=== PATIENT | male | born 1990 ===

== ENCOUNTER 2017-02-24 19:56 | Emergency (ER) | payer MEDICAID, MEDICARE ==
[2017-02-24 19:58] VITALS: BMI 23.7
[2017-02-24 20:00] VITALS: BP 131/84; PULSE 106; RESP 16; TEMP 99.7; O2SAT 99
--- NOTE | 2017-02-24 20:51 | ED PDOC ---
HPI: Psych/Substance Abuse Time Seen by Provider: 02/24/17 19:59 Chief Complaint (Nursing): Substance Abuse Chief Complaint (Provider): substance abuse History Per: Patient, EMS Modifying Factor(s): Narcotics Additional Complaint(s): The patient is a 26yo male, PMHx of heroin abuse, is brought to the ED by EMS for evaluation of possible overdose. Patient was given Narcan intranasally on field. Pt currently in the ED alert and orient with steady gait. Pt reports he injected "2 bags" of heroin and states his girlfriend panicked and thought he may have overdosed. Pt currently declines any medical treatments. He also denies any medical or psychological complaints; denies suicidal ideation, homicidal ideation, auditory or visual hallucination. Past Medical History Reviewed: Historical Data, Nursing Documentation, Vital Signs Vital Signs: Last Vital Signs Temp 99.7 F H 02/24/17 19:58 Pulse 106 H 02/24/17 19:58 Resp 16 02/24/17 19:58 BP 131/84 02/24/17 19:58 Pulse Ox 99 02/24/17 19:58 - Medical History PMH: Anxiety, Asthma, Back Problems, Depression Denies: Diabetes, Hepatitis, HIV, HTN, Chronic Kidney Disease, Seizures, Sexually Transmitted Disease - Family History Family History: States: Unknown Family Hx - Social History Drugs: Opiates - Immunization History Hx Influenza Vaccination: No - Home Medications Home Medications: Ambulatory Orders Medication Instructions Recorded Gabapentin [Neurontin] 300 mg PO TID #90 cap 01/07/17 traZODone [Desyrel] 50 mg PO HS PRN #30 tab 01/07/17 - Allergies Allergies/Adverse Reactions: Allergies Allergy/AdvReac Type Severity Reaction Status Date / Time SEASONAL Allergy RASH Uncoded 02/24/17 19:58 Review of Systems ROS Statement: Except As Marked, All Systems Reviewed And Found Negative Psych: Negative for: Suicidal ideation, Other (auditory or visual hallucinations ) Physical Exam - Reviewed Nursing Documentation Reviewed: Yes Vital Signs Reviewed: Yes - Physical Exam Appears: Positive for: Well, Non-toxic, No Acute Distress Head Exam: Positive for: ATRAUMATIC, NORMAL INSPECTION, NORMOCEPHALIC Skin: Positive for: Normal Color, Warm, DRY Eye Exam: Positive for: Normal appearance Neck: Positive for: Normal Cardiovascular/Chest: Positive for: Regular Rate, Rhythm Respiratory: Positive for: Normal Breath Sounds. Negative for: Respiratory Distress Neurologic/Psych: Positive for: Alert, Oriented, Gait (steady) - ECG O2 Sat by Pulse Oximetry: 99 (RA) Pulse Ox Interpretation: Normal Medical Decision Making Medical Decision Making: Time: 2009 Impression: Opioid abuse Plan: -- Based on clinical presentation, pt stable for d/c home. Scribe Attestation: Documented by Chelsea Johnson acting as a scribe for Dong Farrell MD. Provider Attestation: All medical record entries made by the Scribe were at my direction and personally dictated by me. I have reviewed the chart and agree that the record accurately reflects my personal performance of the history, physical exam, medical decision making, and the department course for this patient. I have also personally directed, reviewed, and agree with the discharge instructions and disposition. Disposition - Clinical Impression Clinical Impression: Substance abuse - Disposition Disposition: Routine/Home Disposition Time: 20:10 Condition: STABLE Instructions: Narcotic Abuse (ED)
[2017-02-25] MEDS ORDERED: Naloxone 0.4 mg/ml Inj (Adult) ONE ×3 (06:20→06:24)
== END 2017-02-24 20:20 | disposition home or self-care (01) ==
LOC: H.ER 19:56
DX: F11.10 Opioid abuse, uncomplicated (principal); F32.9 Major depressive disorder, single episode, unspecified; F41.9 Anxiety disorder, unspecified

== ENCOUNTER 2017-02-25 00:09 | Observation (INO) | payer MEDICARE ==
[2017-02-25 00:12] VITALS: BMI 24.4
[2017-02-25 00:15] VITALS: BP 125/86; RESP 16; TEMP 98.2; O2SAT 95
--- NOTE | 2017-02-25 00:25 | ED PDOC ---
HPI: Psych/Substance Abuse Time Seen by Provider: 02/25/17 00:11 Chief Complaint (Nursing): Substance Abuse Chief Complaint (Provider): Substance Abuse ED Caveat: Intoxicated History Per: Patient History/Exam Limitations: intoxication Current Symptoms Are (Timing): Still Present Suicide/Self Injury Attempted (Context): None Modifying Factor(s): Other (Heroin) Additional Complaint(s): 26 year old male presents to ED for an evaluation of possible heroin overdose and has a history of heroin abuse. Patient was brought in x4 hours by EMS for a possible overdose and was given Narcan intranasally on field at that time. Patient denied medical treatment as well as any medical complaints and was discharged home. Patient returns to ED after being found unconscious by [facility] and EMS after using heroin again. EMS denies administering Narcan on field this time. Patient is visibly obtunded from heroin use. PCP: [facility] Past Medical History Reviewed: Historical Data, Nursing Documentation, Vital Signs Vital Signs: Last Vital Signs Temp 98.2 F 02/25/17 00:12 Pulse 88 02/25/17 00:12 Resp 16 02/25/17 00:12 BP 125/86 02/25/17 00:12 Pulse Ox 95 02/25/17 00:12 - Medical History PMH: Anxiety, Asthma, Back Problems, Depression Denies: Diabetes, Hepatitis, HIV, HTN, Chronic Kidney Disease, Seizures, Sexually Transmitted Disease - Family History Family History: States: Unknown Family Hx - Living Arrangements Living Arrangements: Other (With girlfriend) - Social History Drugs: Opiates (Heroin) - Immunization History Hx Influenza Vaccination: No - Home Medications Home Medications: Ambulatory Orders Medication Instructions Recorded Gabapentin [Neurontin] 300 mg PO TID #90 cap 01/07/17 traZODone [Desyrel] 50 mg PO HS PRN #30 tab 01/07/17 - Allergies Allergies/Adverse Reactions: Allergies Allergy/AdvReac Type Severity Reaction Status Date / Time SEASONAL Allergy RASH Uncoded 02/25/17 00:12 Review of Systems Review Of Systems: ROS cannot be obtained secondary to pt's inabilty to answer questions. (Due to patient's obtunded state) Physical Exam - Reviewed Nursing Documentation Reviewed: Yes Vital Signs Reviewed: Yes - Physical Exam Head Exam: Positive for: ATRAUMATIC Skin: Positive for: Normal Color, Warm, Dry Eye Exam: Negative for: Normal appearance (Pinpoint pupils) Cardiovascular/Chest: Positive for: Regular Rate, Rhythm. Negative for: Murmur Respiratory: Positive for: Normal Breath Sounds. Negative for: Respiratory Distress Gastrointestinal/Abdominal: Positive for: Normal Exam, Soft. Negative for: Tenderness Back: Positive for: Normal Inspection Extremity: Positive for: Normal ROM. Negative for: Deformity Neurologic/Psych: Positive for: Alert. Negative for: Oriented (Obtunded state) , Motor/Sensory Deficits - Laboratory Results Result Diagrams: 02/25/17 00:30 02/25/17 00:30 - ECG ECG Rhythm: Positive for: Sinus Rhythm Rate: 83 O2 Sat by Pulse Oximetry: 95 (RA) Pulse Ox Interpretation: Normal - Critical Care Total Time (In Min): 30 Medical Decision Making Medical Decision Makin Initial impression: heroin overdose Initial plan: * EKG * EtOH serum * Labs * UDrug screen * ED OBS ADMISSION All further documentation will take place in ED OBS section of chart. Scribe Attestation: Documented by Dana York acting as a scribe for Dong Farrell MD. Scribe Attestation: All medical record entries made by the Scribe were at my direction and personally dictated by me. I have reviewed the chart and agree that the record accurately reflects my personal performance of the history, physical exam, medical decision making, and the department course for this patient. I have also personally directed, reviewed, and agree with the discharge instructions and disposition. ED OBSERVATION Date of observation admission: 02/25/17 Time of observation admission: 00:23 - Observation admission statement Patient is being placed in observation because:: Intoxicated state - Goals of Observation Goals of observation are:: Clinical sobriety - Progress Note Progress Note: 02/25/17 01:49 Patient is resting comfortably. 02/25/17 02:30 Patient is resting comfortably. 02/25/17 03:23 Patient is resting comfortably. 02/25/17 04:34 Patient is resting comfortably. Vitals stable. 02/25/17 06:00 Patient is awake, alert, oriented x3 and walking with steady gait. Upon re-evaluation, patient is feeling much better and is medically stable and ready for discharge. Counseling has been provided and patient is in agreement. Return if symptoms persist or acutely worsen. Disposition - Clinical Impression Clinical Impression: Opiate abuse, continuous - Disposition Disposition Time: 00:23 Condition: STABLE - Pt Status Changed To: Hospital Disposition Of: Observation
[2017-02-25 01:02] LABS: ALB/GLOB RATIO 1.1 (1.0-2.1); ALBUMIN 4.8 g/dL (3.5-5.0); ALT/SGPT 93 U/L (21-72); AST/SGOT 69 U/L (17-59); BLOOD UREA NITROGEN 12 mg/dl (9-20); CALCIUM 9.5 mg/dL (8.4-10.2); GFR AFRICAN-AMERICAN > 60; GFR NON-AFRICAN AMERICAN > 60
[2017-02-25 01:05] LABS: BASO % 0.3 % (0.0-2.0); EOS # 0.1 K/uL (0.0-0.7); EOS % 1.2 % (0.0-4.0); HEMOGLOBIN 13.2 g/dL (12.0-18.0); LYMPH # 0.8 K/uL (1.0-4.3); LYMPH % 10.5 % (20.0-40.0); MEAN CELL VOLUME 84.5 fl (80.0-94.0); MEAN CORPUSCULAR HEMOGLOBIN 29.6 pg (27.0-31.0); MEAN PLATELET VOLUME 6.9 fl (7.2-11.7); MONO # 0.8 K/uL (0.0-0.8); MONO % 9.9 % (0.0-10.0); NEUT # 6.3 K/uL (1.8-7.0); NEUT % 78.1 % (50.0-75.0); RBC 4.47 Mil/uL (4.40-5.90); RED CELL DISTRIBUTION WIDTH 14.8 % (11.5-14.5)
[2017-02-25 01:11] LABS: BARBITURATES, UR NEGATIVE (NEGATIVE); BENZODIAZEPINES, UR POSITIVE (NEGATIVE); OPIATES, UR POSITIVE (NEGATIVE); PHENCYCLIDINE, UR NEGATIVE (NEGATIVE)
[2017-02-25 04:33] VITALS: PULSE 83
[2017-02-25] MEDS ORDERED: Naloxone HCl 2mg/2ml syr IVP ONE ×2 (06:19→06:57)
--- NOTE | 2017-02-25 18:24 | CARD ---
APPROVED REPORT EKG Measurement Heart [id number] <Conclusion> Normal sinus rhythm Normal ECG
== END 2017-02-25 06:12 | disposition home or self-care (01) ==
LOC: H.ER 00:09 → H.EROBSV 00:23
PROVIDERS: ADMIT Emergency Medicine; ATTEND Emergency Medicine
DX: F11.129 Opioid abuse with intoxication, unspecified (principal); J45.909 Unspecified asthma, uncomplicated; F41.9 Anxiety disorder, unspecified; F32.9 Major depressive disorder, single episode, unspecified
CPT/HCPCS: 80053; 85025; 93005; 96374; 99283; G0378; G0480; J2405